=== PATIENT | female | born 2000 | race Caucasian/White ===

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

== ENCOUNTER → 2021-07-10 | Outpatient (CLI) | payer OTHER ==
[~2021-07-10] MED LIST changes: +ADULT LOW DOSE81 MG PO; +DECADRON6 MG PO; +ZITHROMAX250 MG PO
== END ==
LOC: LAB 09:31
DX: Z32.00 Encounter for pregnancy test, result unknown (principal)
CPT/HCPCS: 36415; 84702

== ENCOUNTER → 2021-07-12 | Outpatient (CLI) | payer OTHER | LOC: LAB 09:18 | DX: Z32.00 Encounter for pregnancy test, result unknown (principal) | CPT/HCPCS: 36415; 84702 ==

== ENCOUNTER 2021-09-17 12:09 | Emergency (ER) | payer OTHER ==
[2021-09-17 13:38] LABS: HEMOGLOBIN 12.3 gm/dl (12.3-15.3); RED BLOOD COUNT 4.18 M/UL (4.00-5.10); WHITE BLOOD COUNT 7.5 K/UL (4.5-11.0)
[2021-09-17 14:36] LABS: BUN/CREATININE RATIO 14 (0-10)
== END 2021-09-17 15:15 | disposition home or self-care (01) ==
LOC: ER1 12:09
PROVIDERS: Emergency Medicine
DX: O99.351 Diseases of the nervous system complicating pregnancy, first trimester (principal); G43.909 Migraine, unspecified, not intractable, without status migrainosus; Z3A.14 14 weeks gestation of pregnancy
CPT/HCPCS: 80053; 81001; 83735; 85025; 96374; 96375; 99283; J1200; J2765; J7030

== ENCOUNTER 2022-01-24 16:43 | Outpatient (CLI) | payer OTHER | END 2022-01-24 19:15 | disposition home or self-care (01) | LOC: GENOP 16:43 | DX: O47.03 False labor before 37 completed weeks of gestation, third trimester (principal); Z3A.33 33 weeks gestation of pregnancy | CPT/HCPCS: 82731; G0463 ==

== ENCOUNTER 2022-02-17 12:45 | Outpatient (CLI) | payer OTHER | END 2022-02-17 14:55 | disposition home or self-care (01) | LOC: GENOP 12:45 | DX: O99.891 Other specified diseases and conditions complicating pregnancy (principal); R10.2 Pelvic and perineal pain; Z3A.36 36 weeks gestation of pregnancy | CPT/HCPCS: 81001; 87086; G0463 ==

== ENCOUNTER 2022-03-06 06:15 | Inpatient (IN) | payer OTHER ==
[~2022-03-06] VITALS: Ht 165.1 cm; Wt 90.3 kg
[2022-03-06 06:42] LABS: HEMOGLOBIN 9.3 gm/dl (12.3-15.3); RED BLOOD COUNT 3.61 M/UL (4.00-5.10); WHITE BLOOD COUNT 6.3 K/UL (4.5-11.0)
[2022-03-06] MEDS ORDERED: AMOXICILLIN875 MG PO (06:59)
[2022-03-06] MEDS ORDERED: PRENATABS FA T1 EACH PO (06:59)
[2022-03-06] MEDS ORDERED: HYDROCODON-ACE1 EAC6 PO (08:12)
[2022-03-06] MEDS ORDERED: IBUPROFEN600 MG PO (08:12)
[2022-03-06] MEDS ORDERED: COLACE 100MG C100 MG PO (08:12)
[2022-03-07 04:53] LABS: HEMOGLOBIN 8.6 gm/dl (12.3-15.3)
[2022-03-08] MEDS ORDERED: IRON325 M1 PO (13:34)
== END 2022-03-08 16:48 | disposition home or self-care (01) | DRG 788 ==
LOC: OB 06:15
PROVIDERS: ADMIT Obstetrics & Gynecology
PROC: 10D00Z1 Extraction of Products of Conception, Low, Open Approach (ICD-10-PCS; principal; 2022-03-06 07:30)
DX: O34.211 Maternal care for low transverse scar from previous cesarean delivery (principal); D64.9 Anemia, unspecified; Z20.822 Contact with and (suspected) exposure to COVID-19; O99.02 Anemia complicating childbirth; Z3A.39 39 weeks gestation of pregnancy; Z83.3 Family history of diabetes mellitus; Z37.0 Single live birth; Z84.89 Family history of other specified conditions; Z90.89 Acquired absence of other organs; Z98.890 Other specified postprocedural states; Z28.310 Unvaccinated for COVID-19
CPT/HCPCS: 36415; 81001; 82800; 85014; 85018; 85025; 86850; 86900; 86901; C9113; J0690; J1170; J1650; J1885; J2274; J2370; J2405; J2590; J3010; J7120; U0002

== ENCOUNTER 2022-03-14 11:58 | Emergency (ER) | payer OTHER ==
[~2022-03-14 11:58] MED LIST changes: +AMOXICILLIN875 MG PO; +HYDROCODON-ACE1 EAC6 PO; +IRON325 M1 PO; +PRENATABS FA T1 EACH PO
[2022-03-14] MEDS ORDERED: KENALOG OINT 0.15 GM TOP (13:28)
[2022-03-14] MEDS ORDERED: FAMOTIDINE10 MG PO (13:28)
[2022-03-14] MEDS ORDERED: CLARITIN10 M2 PO (13:28)
== END 2022-03-14 13:54 | disposition home or self-care (01) ==
LOC: ER1 11:58
DX: L50.0 Allergic urticaria (principal); L25.8 Unspecified contact dermatitis due to other agents
CPT/HCPCS: 99282

== ENCOUNTER 2022-06-16 08:26 | Emergency (ER) | payer BC, OTHER ==
[~2022-06-16 08:26] MED LIST changes: +CLARITIN10 M2 PO; +FAMOTIDINE10 MG PO; +KENALOG OINT 0.15 GM TOP
== END 2022-06-16 10:40 | disposition home or self-care (01) ==
LOC: ER1 08:26
DX: G43.909 Migraine, unspecified, not intractable, without status migrainosus (principal)
CPT/HCPCS: 96374; 96375; 99283; J0780; J1200; J1885

== ENCOUNTER → 2022-07-18 | Outpatient (CLI) | payer BC, OTHER | LOC: KOH-I 08:47 | DX: G43.009 Migraine without aura, not intractable, without status migrainosus (principal) | CPT/HCPCS: 70551 ==